=== PATIENT | female | born 1940 | race Caucasian/White ===

== ENCOUNTER 2017-11-22 16:36 | Emergency (ER) | payer OTHER ==
--- NOTE | 2017-11-22 16:46 | EDPHY ---
HPI/HX/ROS/PE/MDM Narrative: CHIEF COMPLAINT: Right rib pain secondary to fall HISTORY OF PRESENT ILLNESS: The patient is a 76 y/o female with a history of type 1 diabetes and hypertension complaining of right rib pain secondary to falling this morning at 8:00, 9 hours ago. She was placing a bag on the floor when she momentarily felt dizzy and unbalanced, similar to a prior vertigo episodes. Denies loss of consciousness, chest pain, or nausea. Due to this vertigo-like symptoms she fell over from a crouched position and hit her lower right ribs. Denies hitting her head. She thought she heard a crunching sound on impact. Around 1 hour after the fall she had one episode of vomiting. Moving around exacerbates her symptoms. Took 3 baby aspirin for the pain at 10:00, 7 hours ago. Denies history of LA, cardiac stents, a-fib/flutter, strokes. Denies numbness or tingling in extremities or speech difficulties. Denies illicit drug, tobacco, or marijuana use. She did drink several glasses of wine last night. No fever, chills, shortness of breath, palpitations, diarrhea, urinary complaints, headache. REVIEW OF SYSTEMS: Aside from elements discussed in the HPI, a comprehensive 10-point review of systems was reviewed and is negative. PAST MEDICAL HISTORY: Type 1 Diabetes, hypertension, back surgery SOCIAL HISTORY: at bedside, lives in [place], retired, moderate consumption of alcohol VITAL SIGNS: Reviewed by me GENERAL: Well-developed, well-nourished, resting comfortably in no respiratory distress. HEENT: Atraumatic. Eyes: No icterus, no injection. Mouth: moist mucous membranes. No erythema or lesions. Neck: supple with no adenopathy. LUNGS: Clear to auscultation bilaterally, no wheezes, rhonchi or rales. CARDIAC: Regular rate and rhythm, no rubs, murmurs or gallops. CHEST: Lateral lower right chest tenderness to palpation, no crepitus. ABDOMEN: Soft, nontender, nondistended, bowel sounds normal. BACK: No CVA tenderness. EXTREMITIES: No trauma. No edema. Range of motion is normal throughout. NEURO: Alert and oriented, grossly nonfocal. SKIN: Warm and dry, no rash. PSYCHIATRIC: Normal mentation, no agitation. Portions of this note were transcribed by a medical educator. I personally performed a history, physical exam, medical decision making, and confirmed accuracy of information the transcribed note. ED Course: The patient is a 76 y/o female with a history of type 1 diabetes and hypertension presenting with right rib pain secondary to becoming dizzy and falling this morning at 8:00, 9 hours ago. On exam she has lateral lower right chest tenderness to palpation associated with painful inspiration. There is no crepitus. Chest x-ray, EKG, and labs ordered. 50mcg IV Fentanyl administered. 170: 12-LEAD EKG: Please see the full report in [facility]. My interpretation: Sinus rhythm with a rate of 82 182: Patient has three minimally displaced right-sided rib fractures (7,8,9) per radiologist read. 1844: Reassessed patient and discussed imaging findings. She is feeling better after fentanyl. 15mg IV Toradol and lidocaine patch given. Patient's O2 saturation is normal. I offered the patient admission to the hospital. She would like to see how she feels after the Toradol and lidocaine. 1935: Reassessed patient, she continues to feel better. 1 Vicodin tab given. Patient is up and ambulatory without difficulty. Again we discussed admission to the hospital versus home with pain meds. She is comfortable being discharged and that would be her preference. 2030: Patient continues to feel better. She will be given a [place] pain prescription and I have advised her to take ibuprofen and use lidocaine patches. I have also advised her to use an incentive spirometer. Return precautions provided; patient and her are comfortable with this plan. MDM: Differential diagnosis for the patient's injury was considered including but not limited to contusion, abrasion, laceration, fracture, pneumothorax, pulmonary contusion. - Data Points Imaging Results: Rib series: Impression: 1. Minimally displaced posterolateral right 7th through 9th rib fractures. 2. Additional findings as above. Dictated By: Mike Moralez MD CXR: Impression: Minimally displaced posterolateral right 7th through 9th rib fractures. Dictated By: Mike Moralez MD Imaging: I viewed and interpreted images myself Laboratory Results: Laboratory Results 11/22/17 17:30 11/22/17 17:30 Medications Given: Discontinued Medications Hydrocodone Bitart/Acetaminophen ([place] 5/325) 1 tab PO EDNOW ONE Stop: 11/22/17 19:40 Last Admin: 11/22/17 19:53 Dose: 1 tab Fentanyl (Sublimaze) 50 mcg IVP EDNOW ONE Stop: 11/22/17 17:08 Last Admin: 11/22/17 17:28 Dose: 50 mcg Sodium Chloride (Ns) 500 mls @ 0 mls/hr IV EDNOW ONE; Wide Open PRN Reason: Protocol Stop: 11/22/17 17:07 Last Admin: 11/22/17 17:28 Dose: 500 mls Ketorolac Tromethamine (Toradol) 15 mg IVP EDNOW ONE Stop: 11/22/17 18:29 Last Admin: 11/22/17 18:49 Dose: 15 mg Miscellaneous Medication (Icy Hot Lidocaine/Menthol 4%/1% Patch) 1 patch TD EDNOW ONE Stop: 11/22/17 19:26 Last Admin: 11/22/17 19:32 Dose: 1 patch General Time Seen by Provider: 11/22/17 16:45 Initial Vital Signs: Initial Vital Signs Temperature (C) 36.4 C 11/22/17 16:40 Heart Rate 88 11/22/17 16:40 Respiratory Rate 16 11/22/17 16:40 Blood Pressure 200/111 H 11/22/17 16:40 O2 Sat (%) 93 11/22/17 16:40 O2 Delivery Mode Room Air Allergies/Adverse Reactions: No Known Allergies Allergy (Unverified 11/22/17 16:50) Home Medications: Medication Instructions Recorded Hydrocodone/APAP 5/325 [[place] 1 tab PO Q6H PRN #10 tab 11/22/17 5/325 (RX)] Insulin Syringe 11/22/17 Departure - Departure Disposition: Home, Routine, Self-Care Clinical Impression: Fracture of rib of right side Condition: Good Instructions: How to Use an Incentive Spirometer (ED), Rib Fracture (ED) Additional Instructions: Followup with your primary doctor within 72 hours for reevaluation. Use incentive spirometer as directed several times daily. Take ibuprofen on a regular basis for pain. Use as lidocaine patch as needed. Take [place] for pain exacerbation. Return to the emergency department for fever, worsening pain, shortness of breath or difficulty breathing, abdominal pain, blood in urine or other concerns. Referrals: Chanda Saunders MD [Primary Care Provider] - As per Instructions Prescriptions: Hydrocodone/APAP 5/325 [[place] 5/325 (RX)] 1 tab PO Q6H PRN #10 tab PRN Reason: Pain Report Scribed for: Carol Chapman Report Scribed by: Lulu Andersen Date of Report: 11/22/17 Time of Report: 16:45
[2017-11-22] MEDS ORDERED: NS 500 ML IV ONE (17:06)
[2017-11-22] MEDS ORDERED: fentaNYL 100 MCG/2 ML INJ IVP ONE (17:07)
--- NOTE | 2017-11-22 17:14 | CPEKG ---
Heart Rate: 82 RR Interval: 732 P-R Interval: 160 QRSD Interval: 80 QT Interval: 368 QTC Interval: 430 P [place]: 64 QRS [place]: -15 T Wave [place]: 62 EKG Severity - ABNORMAL ECG - EKG Impression: SINUS RHYTHM EKG Impression: LEFT ATRIAL ABNORMALITY EKG Impression: BORDERLINE LEFT AXIS DEVIATION Electronically Signed By: Carol Chapman 22-Nov-2017 21:03:43
[2017-11-22 17:35] LABS: PLATELET COUNT 319 10^3/uL (150-400)
[2017-11-22] MEDS ORDERED: KETOROLAC 15 MG/1 ML SDV IVP ONE (18:28)
[2017-11-22] MEDS ORDERED: LIDOCAINE 4%/MENTHOL 1% PATCH TD ONE (19:25)
[2017-11-22] MEDS ORDERED: HYDROCODONE/APAP 5/325 TAB PO ONE (19:39)
[2017-11-22] MEDS ORDERED: HYDROCOD/APAP 5/325 PREPACK#6 BTL TAKEHOME ONE (20:28)
[2017-11-22] MEDS ORDERED: PATCH REMOVAL 1 EA PATCH TD SCH (21:00)
[2017-11-22 21:11] VITALS: BP 150/75
== END 2017-11-22 21:10 | disposition home or self-care (01) ==
DX: S22.31XA Fracture of one rib, right side, initial encounter for closed fracture (principal); E10.9 Type 1 diabetes mellitus without complications; I10 Essential (primary) hypertension; W18.39XA Other fall on same level, initial encounter; Y92.89 Other specified places as the place of occurrence of the external cause; Y99.8 Other external cause status; Y93.89 Activity, other specified
CPT/HCPCS: 71046; 71100; 93005; 96361; 96374; 96375; 99285; J1885; J3010

== ENCOUNTER → 2017-12-26 | Outpatient (CLI) | payer OTHER | LOC: FIMAGING 08:56 | PROVIDERS: ATTEND Internal Medicine | DX: Z13.820 Encounter for screening for osteoporosis (principal); M81.0 Age-related osteoporosis without current pathological fracture; M48.54XA Collapsed vertebra, not elsewhere classified, thoracic region, initial encounter for fracture; I70.0 Atherosclerosis of aorta; E03.9 Hypothyroidism, unspecified; Z78.0 Asymptomatic menopausal state ==

== ENCOUNTER → 2018-10-31 | Outpatient (CLI) | payer OTHER | LOC: BMCIMAGING 16:31 | PROVIDERS: ATTEND Family Medicine | DX: M19.071 Primary osteoarthritis, right ankle and foot (principal); M20.11 Hallux valgus (acquired), right foot ==